=== PATIENT | male | born 1975 | race Caucasian/White ===

== ENCOUNTER → 2024-07-12 | Outpatient (CLI) | payer BC ==
[~2024-07-12] VITALS: Ht 175.3 cm; Wt 74.8 kg
[~2024-07-12] MED LIST: IOHEXOL-350 100 ML BOTTLE ONE
[2024-07-12] MEDS: NITROGLYCERIN SPRAY/4.9GM CAN TL ONE (10:18)
== END | disposition home or self-care (01) ==
LOC: CT 09:23
DX: R94.31 Abnormal electrocardiogram [ECG] [EKG] (principal); R07.89 Other chest pain; R07.2 Precordial pain
CPT/HCPCS: 75571; Q9967